=== PATIENT | male | born 1955 | race Caucasian/White ===

== ENCOUNTER → 2017-10-28 | Day surgery (SDC) | payer MEDICAID ==
[~2017-10-28] MED LIST: ACETAMINOPHEN 1,000 MG/100 ML BTL IV ONE; BUPIVACAINE 0.25% W/EPI MPF 30ML VIAL IVP ONE; FAMOTIDINE 20MG TABLET PO ONE; FENTANYL PF 100MCG/2ML VIAL IV ONE; HYDROCODONE/APAP 5/325MG TABLET PO ONE; HYDROMORPHONE HCL 2 MG/ML VIAL IV ONE; LIDOCAINE 1% MDV (10MG/ML) 20ML VIAL SQ ONE; MECLIZINE 25 MG TABLET PO ONE; METOCLOPRAMIDE 10 MG TABLET PO ONE; METOCLOPRAMIDE HCL 10 MG/2 ML VIAL IVP ONE; MIDAZOLAM HCL 2MG/2ML VIAL IV ONE; ONDANSETRON HCL IV 4 MG/2 ML VIAL IVP ONE; PROPOFOL 10 MG/ML VIAL IV ONE; ROCURONIUM BROMIDE 50MG/5ML VIAL IV ONE; SEVOFLURANE 250 ML INH ONE
--- NOTE | 2017-10-29 07:11 | Operative Note ---
DATE OF SURGERY: 10/28/2017 Surgeon: Lexx Cotto DO PREOPERATIVE DIAGNOSIS: Chronic cholecystitis. POSTOPERATIVE DIAGNOSIS: Chronic cholecystitis. OPERATION: Laparoscopic cholecystectomy. PROCEDURE: The patient is a 62-year-old male who was brought to the operating room and placed in a supine position. General anesthesia was administered per the department of anesthesia. The patient's abdomen was shaved of hair and prepped and draped in the usual sterile fashion. The supraumbilical region was anesthetized with a total of 2 mL of 0.25% Sensorcaine with epinephrine. A 2 cm supraumbilical incision was made. This was carried down to the anterior rectus fascia. This was incised. Ruben clamps were placed on the fascial edges and brought up into the wound. Stay sutures of 0 Vicryl were placed. Posterior rectus sheath was identified and incised. The peritoneal cavity was entered bluntly. At this time, a 10 mm blunt Christiano port was placed. Adequate pneumoperitoneum was established. Under direct visualization, additional 5 mm epigastric and two 5 mm right subcostal ports were placed. The gallbladder was identified. I could only see the fundus. The rest of it was covered with omentum fairly densely due to the inflammatory process. This was retracted further in a cephalad direction. Suction grinder set up operator internal was used to bluntly take down the omentum. This was also attached to the liver which was taken down by the Armando harmonic. Further cephalad and lateral retraction was applied. The hepatocystic triangle was thoroughly dissected out. There was no aberrant anatomy, no posterior ductal structures. The cystic duct and cystic artery were clearly identified. The distal half of the gallbladder was released from the cystic plate elongating our retroductal window. The cystic artery as taken down with the Armando harmonic. The cystic duct was triply clipped and cut in a standard fashion. Gallbladder essentially peeled off the liver bed with some mild traction. This was unintentional. This was then placed in an EndoCatch bag and brought out through the umbilical port. Right upper quadrant was then visualized. There was small oozing in the liver bed which was controlled with FloSeal. Hemostasis was noted. The patient was then leveled out. The pneumoperitoneum was released. All ports were removed. The fascia was closed with 0 Vicryl in a [id number] fashion. The skin at all ports was closed with 4-0 Vicryl. The patient was taken to the recovery room in satisfactory condition. FINDINGS AT THE TIME OF SURGERY: Chronic cholecystitis. MTDD
== END | disposition home or self-care (01) ==
LOC: SUR 07:27
PROVIDERS: ATTEND Surgery
DX: K81.1 Chronic cholecystitis (principal); K51.90 Ulcerative colitis, unspecified, without complications; I10 Essential (primary) hypertension
CPT/HCPCS: C1776; J2405; J2765